=== PATIENT | female | born 1975 | race Native Hawaiian/Other Pacific Islander ===

== ENCOUNTER 2020-11-17 03:29 | Emergency (ER) | payer SELFPAY ==
[~2020-11-17] VITALS: Ht 152.4 cm; Wt 86.2 kg
[2020-11-17] MEDS ORDERED: METF-440 PO (03:47)
[2020-11-17] MEDS ORDERED: FURO-151 PO (03:47)
[2020-11-17] MEDS ORDERED: CARV12.5 PO (03:47)
[2020-11-17] MEDS ORDERED: SPIR25TA PO (03:47)
[2020-11-17] MEDS ORDERED: ASPI81TA31 PO (03:47)
[2020-11-17] MEDS ORDERED: SULFAMETH/TRIMETH 800/160 MG TABLET PO ONE (04:00)
[2020-11-17] MEDS ORDERED: CLONIDINE HCL 0.2 MG TABLET PO ONE (04:00)
--- NOTE | 2020-11-17 04:00 | NUR ---
Dr. Lacey at bedside for MSE
[2020-11-17] MEDS ORDERED: SULFAMETH/TRIMETH 800/160 MG TABLET ONE (04:07)
[2020-11-17] MEDS ORDERED: CLONIDINE HCL 0.2 MG TABLET ONE (04:07)
--- NOTE | 2020-11-17 04:20 | NUR ---
Patient discharged to home in stable condition. Written and verbal after care instructions given. Patient verbalizes understanding of instructions. Stressed follow up or return to ER for worsening s/s. Patient ambulated with steady gait. denies any N / V or dizziness. NAD noted
[2020-11-17 04:45] VITALS: BP 157/105
== END 2020-11-17 04:20 | disposition home or self-care (01) ==
LOC: ER 03:29
DX: L08.9 Local infection of the skin and subcutaneous tissue, unspecified (principal); E11.9 Type 2 diabetes mellitus without complications; Z79.84 Long term (current) use of oral hypoglycemic drugs; Z79.899 Other long term (current) drug therapy; I50.9 Heart failure, unspecified
CPT/HCPCS: A4663

== ENCOUNTER 2020-11-20 00:52 | Inpatient (IN) | payer SELFPAY ==
[~2020-11-20] VITALS: Ht 152.4 cm; Wt 83.9 kg
[~2020-11-20 00:52] MED LIST: ASPI81TA31 PO; CARV12.5 PO; FURO-151 PO; METF-440 PO; SPIR25TA PO
--- NOTE | 2020-11-20 01:00 | NUR ---
Patient walked into ER c/o bilateral hand pain and swelling for about a week. Patient was seen here 3 days ago for same complaint. Came back for worsening pain and swelling.
[2020-11-20] MEDS ORDERED: [UNRECOGNIZED DRUG - REMARK] (01:05)
[2020-11-20] MEDS ORDERED: VANCOMYCIN IV 1,000 MG in IV DEXTROSE 5% 250 ML IV ONE (01:30)
[2020-11-20] MEDS ORDERED: VANCOMYCIN IV 200 ML ONE (01:41)
[2020-11-20 01:52] LABS: BASOPHILS # (AUTO) 0.1 K/uL (0.0-8.0); EOSINOPHILS # (AUTO) 0.1 K/uL (0.0-0.7); EOSINOPHILS % (AUTO) 1.4 % (0.0-7.0); HEMATOCRIT 36.6 % (31.2-41.9); HEMOGLOBIN 12.6 g/dL (10.9-14.3); LYMPHOCYTES # (AUTO) 1.7 K/uL (20.0-40.0); LYMPHOCYTES % (AUTO) 17.6 % (20.5-51.5); MEAN CORPUSCULAR HEMOGLOBIN 31.2 uug (24.7-32.8); MEAN CORPUSCULAR HGB CONC 35 g/dL (32.3-35.6); MEAN CORPUSCULAR VOLUME 90.3 fL (75.5-95.3); MONOCYTES # (AUTO) 0.6 K/uL (2.0-10.0); MONOCYTES % (AUTO) 5.9 % (0.0-11.0); NEUTROPHILS # (AUTO) 6.9 K/uL (1.8-8.9); NEUTROPHILS % (AUTO) 74.1 % (38.5-71.5); PLATELET COUNT (AUTO) 356 K/uL (179-408); RED BLOOD CELL COUNT(AUTO) 4.06 MIL/uL (3.63-4.92); WHITE BLOOD COUNT (AUTO) 9.4 K/uL (3.8-11.8)
[2020-11-20 01:53] LABS: CREATININE 1.3 mg/dL (0.6-1.3); POTASSIUM 4.2 mmol/L (3.5-5.1)
[2020-11-20 02:05] LABS: BILIRUBIN,DIRECT 0.1 mg/dL (0.0-0.2); BILIRUBIN,TOTAL 0.2 mg/dL (0.2-1.0); TOTAL PROTEIN, SERUM 7.7 g/dL (6.4-8.2)
--- NOTE | 2020-11-20 02:24 | NUR ---
US tech into do exam
[2020-11-20 02:25] LABS: *BILIRUBIN,URIN NEGATIVE (NEGATIVE); *BLOOD, URINE NEGATIVE (NEGATIVE); *CLARITY,URINE CLEAR (CLEAR); *COLOR,URINE YELLOW (YELLOW); *KETONES,URINE NEGATIVE (NEGATIVE); *UROBILINOGEN,URINE 0.2 E.U./dl (NORMAL); LEUKOCYTE ESTERASE ,URINE NEGATIVE (NEGATIVE); NITRITE, URINE NEGATIVE (NEGATIVE); PH,URINE 7.5 (5.0-8.0)
[2020-11-20 02:37] LABS: UGLUCOSE 2+ (NEGATIVE)
[2020-11-20 02:39] LABS: *URINE HCG, QUAL NEGATIVE (NEGATIVE)
[2020-11-20 02:41] LABS: BACTERIA,URINE NONE SEEN /HPF (NONE SEEN); RBC,URINE 0-3 /HPF (0-3); SQUAMOUS EPITHELIAL CELL,UR MODERATE /HPF (NONE SEEN); WBC,URINE 0-3 /HPF (0-3)
[2020-11-20 02:48] LABS: *RHEUMATOID FACTOR SCREEN NEGATIVE (NEGATIVE)
[2020-11-20] MEDS ORDERED: MAGNESIUM HYDROXIDE 30 ML LIQUID UDC PO PRN (03:45)
[2020-11-20] MEDS ORDERED: ONDANSETRON 4 MG/2 ML VIAL IV PRN (03:45)
[2020-11-20] MEDS ORDERED: DEXTROSE 50% 50 ML DISP.SYRIN IV PRN (03:45)
[2020-11-20] MEDS ORDERED: ACETAMINOPHEN 325 MG TABLET PO PRN (03:45)
[2020-11-20] MEDS: MORPHINE SULFATE 2 MG/1 ML DISP.SYRIN IV PRN ×2 (04:06→18:05)
--- NOTE | 2020-11-20 04:30 | NUR ---
RECEIVED PATIENT VIA GURNEY FROM ER. A/O X4. C/O PAIN IN BILATERAL HANDS. GIVEN MORPHINE 1MG IVP PER RN. BP ELEVATED. PATIENT DENIES ANY CHEST PAIN OR DISCOMFORT. NO RESP. DISTRESS NOTED. WILL CONTINUE TO MONITOR AND ASSESS. CALL LIGHT IN REACH.
[2020-11-20] MEDS ORDERED: CLONIDINE HCL 0.1 MG TABLET PO STA (05:14)
[2020-11-20] MEDS ORDERED: CLONIDINE HCL 0.1 MG TABLET PO PRN (05:15)
--- NOTE | 2020-11-20 05:15 | NUR ---
PATIENT RESTING IN BED. BP 195/111. ALL OTHER VSS. PATIENT IS ASYMPTOMATIC. CALLED OUT TO AUGUSTIN DEBURR TECHNICIAN FOR FURTHER ORDERS.
[2020-11-20 05:31] VITALS: BP 195/111
[2020-11-20] MEDS: BLOOD SUGAR DIAGNOSTIC 1 EACH STRIP VI SCH ×4 (06:13→21:37)
[2020-11-20 07:10] VITALS: BP 197/120
--- NOTE | 2020-11-20 07:30 | NUR ---
Received patient in bed A/O x 4 no s/s of distress or SOB. Pt on room air sating well, IV on L AC flushes well. Pt voices concerns. Will continue to monitor and assess. safety measures in place
[2020-11-20] MEDS: ASPIRIN 81 MG TAB.CHEW PO SCH (08:26)
[2020-11-20] MEDS: SPIRONOLACTONE 25 MG TABLET PO SCH (08:26)
[2020-11-20] MEDS: METFORMIN HCL 500 MG TABLET PO SCH ×2 (08:26→17:35)
[2020-11-20] MEDS: FUROSEMIDE 40 MG TABLET PO SCH (08:28)
[2020-11-20] MEDS: ENOXAPARIN SODIUM 40 MG/0.4 ML DISP.SYRIN SQ SCH (08:35)
[2020-11-20] MEDS ORDERED: CARVEDILOL 12.5 MG TABLET PO SCH (09:00)
[2020-11-20] MEDS ORDERED: VALSARTAN 80 MG TABLET PO SCH (09:30)
[2020-11-20] MEDS ORDERED: CARVEDILOL 12.5 MG TABLET PO ONE (09:45)
[2020-11-20] MEDS: PIPERACILLIN SODIUM/TAZOBACTAM 3.375 G in IV DEXTROSE 5% 50 ML IV SCH ×2 (10:14→17:35)
[2020-11-20 11:33] VITALS: BP 116/62
--- NOTE | 2020-11-20 12:30 | NUR ---
WOUND CARE CONSULT: PT PRESENTS WITH EDEMA TO HANDS AND SOME OPEN AREAS AT BASE OF FINGERS. PT REPORTS FINGERS ARE PAINFUL. NO DRAINAGE NOTED. RECOMMEND SURGICAL CONSULT. DR VARGAS NOTIFIED OF CONSULT REQUEST. WILL SEE PRN. RUIZ IN AGREEMENT WITH PLAN OF CARE.
[2020-11-20] MEDS: INSULIN REGULAR, HUMAN 300 UNIT/3 ML VIAL SQ PRN ×2 (12:45→17:41)
[2020-11-20] MEDS ORDERED: LISI-603 PO (14:10)
[2020-11-20 16:00] VITALS: BP 120/71
--- NOTE | 2020-11-20 18:10 | NUR ---
Pt expressed throbbing pain on both hands, Pain Medication given as ordered
--- NOTE | 2020-11-20 19:21 | NUR ---
Pt is resting in bed. Pt is on room air satting well. IV is Intact and flushing well. Pt AOx4, complains of acute pain on hands gave Pain medications as ordered . Pt needs were met, PT is safe and comfortable.
[2020-11-20 20:23] VITALS: BP 141/79
[2020-11-20] MEDS: CARVEDILOL 25 MG TABLET PO SCH (21:36)
[2020-11-20] MEDS: HYDROCODONE/APAP 5-325MG TABLET PO PRN (21:40)
[2020-11-20] MEDS: VANCOMYCIN IV 1,250 MG in IV DEXTROSE 5% 250 ML IV SCH (23:15)
[2020-11-21] MEDS: PIPERACILLIN SODIUM/TAZOBACTAM 3.375 G in IV DEXTROSE 5% 50 ML IV SCH ×3 (01:26→17:09)
[2020-11-21 04:41] VITALS: BP 124/74
[2020-11-21] MEDS: BLOOD SUGAR DIAGNOSTIC 1 EACH STRIP VI SCH ×4 (06:34→20:42)
[2020-11-21 06:44] LABS: BASOPHILS # (AUTO) 0.1 K/uL (0.0-8.0); BASOPHILS % (AUTO) 0.9 % (0.0-2.0); EOSINOPHILS # (AUTO) 0.2 K/uL (0.0-0.7); EOSINOPHILS % (AUTO) 3.1 % (0.0-7.0); HEMATOCRIT 34.6 % (31.2-41.9); HEMOGLOBIN 11.7 g/dL (10.9-14.3); LYMPHOCYTES # (AUTO) 1.9 K/uL (20.0-40.0); LYMPHOCYTES % (AUTO) 28.4 % (20.5-51.5); MEAN CORPUSCULAR HEMOGLOBIN 30.7 uug (24.7-32.8); MEAN CORPUSCULAR HGB CONC 34 g/dL (32.3-35.6); MEAN CORPUSCULAR VOLUME 90.9 fL (75.5-95.3); MONOCYTES # (AUTO) 0.5 K/uL (2.0-10.0); MONOCYTES % (AUTO) 7.9 % (0.0-11.0); NEUTROPHILS % (AUTO) 59.7 % (38.5-71.5); PLATELET COUNT (AUTO) 332 K/uL (179-408); WHITE BLOOD COUNT (AUTO) 6.7 K/uL (3.8-11.8)
[2020-11-21 06:59] LABS: CREATININE 1.4 mg/dL (0.6-1.3); MAGNESIUM 1.8 mg/dL (1.8-2.4); PHOSPHOROUS 2.9 mg/dL (2.5-4.9); POTASSIUM 4.2 mmol/L (3.5-5.1)
[2020-11-21 07:59] LABS: THYROID STIMULATING HORMONE 1.864 mIU/mL (0.358-3.740)
[2020-11-21] MEDS: ASPIRIN 81 MG TAB.CHEW PO SCH (08:07)
[2020-11-21] MEDS: CARVEDILOL 25 MG TABLET PO SCH ×2 (08:07→20:36)
[2020-11-21] MEDS: METFORMIN HCL 500 MG TABLET PO SCH ×2 (08:07→17:06)
[2020-11-21] MEDS: SPIRONOLACTONE 25 MG TABLET PO SCH (08:07)
[2020-11-21] MEDS: FUROSEMIDE 40 MG TABLET PO SCH (08:07)
[2020-11-21] MEDS: ENOXAPARIN SODIUM 40 MG/0.4 ML DISP.SYRIN SQ SCH (08:08)
[2020-11-21] MEDS: INSULIN REGULAR, HUMAN 300 UNIT/3 ML VIAL SQ PRN ×3 (08:57→20:50)
[2020-11-21] MEDS: HYDROCODONE/APAP 5-325MG TABLET PO PRN ×2 (09:26→20:36)
[2020-11-21 11:29] VITALS: BP 105/49
[2020-11-21 16:45] VITALS: BP 138/87
[2020-11-21 20:08] VITALS: BP 156/83
[2020-11-21] MEDS ORDERED: ATORVASTATIN 10 MG TABLET PO SCH (21:00)
[2020-11-21] MEDS: VANCOMYCIN IV 1,250 MG in IV DEXTROSE 5% 250 ML IV SCH (23:06)
--- NOTE | 2020-11-21 23:48 | NUR ---
Pt is resting in bed. Pt is on room air, no SOB noted. No acute distress . C/O bilateral hand pain, administered [place], per pt request. All due medications administered as ordered. BS 131, covered per sliding scale, 2units. Bilateral Hands swollen and pink, administered Vanco, no adverse reaction, tolerating well. IV LAC is Intact and flushing well. All needs attended. Snack provided. Will continue to monitor.
[2020-11-22] MEDS: PIPERACILLIN SODIUM/TAZOBACTAM 3.375 G in IV DEXTROSE 5% 50 ML IV SCH (02:01)
[2020-11-22] MEDS: HYDROCODONE/APAP 5-325MG TABLET PO PRN (03:00)
--- NOTE | 2020-11-22 03:00 | NUR ---
c/o of 7/10 pain in left hand, administered [place] per request will monitor effectiveness.
[2020-11-22 04:51] VITALS: BP 150/70
[2020-11-22] MEDS: BLOOD SUGAR DIAGNOSTIC 1 EACH STRIP VI SCH ×2 (06:57→10:38)
[2020-11-22 07:13] LABS: CREATININE 1.5 mg/dL (0.6-1.3); POTASSIUM 4.2 mmol/L (3.5-5.1)
[2020-11-22] MEDS: INSULIN REGULAR, HUMAN 300 UNIT/3 ML VIAL SQ PRN ×2 (07:55→10:58)
[2020-11-22] MEDS: ASPIRIN 81 MG TAB.CHEW PO SCH (07:55)
[2020-11-22] MEDS: ENOXAPARIN SODIUM 40 MG/0.4 ML DISP.SYRIN SQ SCH (07:56)
[2020-11-22] MEDS: FUROSEMIDE 40 MG TABLET PO SCH (07:56)
[2020-11-22] MEDS: CARVEDILOL 25 MG TABLET PO SCH (07:56)
[2020-11-22] MEDS: METFORMIN HCL 500 MG TABLET PO SCH (07:56)
[2020-11-22] MEDS: SPIRONOLACTONE 25 MG TABLET PO SCH (07:56)
[2020-11-22] MEDS ORDERED: PIPERACILLIN/TAZO 2.25 G in IV DEXTROSE 5% 50 ML IV SCH (09:00)
[2020-11-22] MEDS ORDERED: ACIDOPHILUS/BULGARICUS CHEW TAB PO SCH (10:45)
[2020-11-22 11:35] VITALS: BP 158/83
[2020-11-22] MEDS ORDERED: DOXY-226 PO (15:44)
[2020-11-22] MEDS ORDERED: GLIP5TAB13 PO (15:44)
[2020-11-22] MEDS ORDERED: FURO-152 PO (15:44)
[2020-11-22] MEDS ORDERED: CARV25TA2 PO (15:44)
[2020-11-22] MEDS ORDERED: ATOR10TA PO (15:44)
[2020-11-22] MEDS ORDERED: HYDR-3974 PO (16:01)
--- NOTE | 2020-11-22 16:18 | NUR ---
dc orders received noted and carried out dc heplock per md orders,dc instruction and education given to the pt ,pt said she will follow up with her pcp in one week.pt left the facilty via private car in stable condition
== END 2020-11-22 16:36 | disposition home or self-care (01) | DRG 602 ==
LOC: ER 01:02 → MED 03:32 → MEDSURG3 06:31
PROVIDERS: ADMIT Internal Medicine; ATTEND Internal Medicine
DX: L03.114 Cellulitis of left upper limb (principal); N17.0 Acute kidney failure with tubular necrosis; L03.113 Cellulitis of right upper limb; L03.012 Cellulitis of left finger; R60.0 Localized edema; E11.65 Type 2 diabetes mellitus with hyperglycemia; Z79.84 Long term (current) use of oral hypoglycemic drugs; Z79.82 Long term (current) use of aspirin; Z20.822 Contact with and (suspected) exposure to COVID-19; E66.9 Obesity, unspecified; Z68.36 Body mass index [BMI] 36.0-36.9, adult; E78.5 Hyperlipidemia, unspecified; F17.210 Nicotine dependence, cigarettes, uncomplicated; Z79.899 Other long term (current) drug therapy; I11.0 Hypertensive heart disease with heart failure; I50.9 Heart failure, unspecified; F15.11 Other stimulant abuse, in remission; Z83.3 Family history of diabetes mellitus; L03.011 Cellulitis of right finger
CPT/HCPCS: 36415; 71045; 83735; 84100; 84443; 84703; 85025; 86430; 87040; 93005; A4663; G0378; J1650; J1815; J2270; J2543; J3370; J7050; J7060

== ENCOUNTER 2025-10-11 22:33 | Inpatient (IN) | payer OTHER ==
[~2025-10-11] VITALS: Ht 154.9 cm; Wt 75.9 kg
[~2025-10-11 22:33] MED LIST changes: +ATOR10TA PO; -CARV12.5 PO; +CARV25TA2 PO; +DOXY-226 PO; -FURO-151 PO; +FURO-152 PO; +GLIP5TAB23 PO; +HYDR-3974 PO; -METF-440 PO; -SPIR25TA PO
[2025-10-11] MEDS ORDERED: METF-440 PO (22:47)
[2025-10-11] MEDS ORDERED: SPIR25TA6 PO (22:47)
[2025-10-11 23:23] LABS: PLATELET COUNT (AUTO) 338 K/uL (179-408); RED BLOOD CELL COUNT(AUTO) 4.84 MIL/uL (3.63-4.92); RED CELL DISTRIBUTION WIDTH 15.5 % (12.3-17.7); WHITE BLOOD COUNT (AUTO) 11.4 K/uL (3.8-11.8)
[2025-10-11 23:29] LABS: CREATININE 2.0 mg/dL (0.6-1.3); SODIUM SERUM 141 mmol/L (136-145); UREA NITROGEN, BLOOD 41 mg/dL (7-18)
[2025-10-11 23:35] LABS: ASPARTATE AMINOTRANSFERASE 22 U/L (15-37); ETHANOL < 3 MG/DL (0-10); TOTAL PROTEIN, SERUM 8.0 g/dL (6.4-8.2)
[2025-10-12] MEDS ORDERED: LORAZEPAM 2 MG/1 ML VIAL IV ONE (00:30)
[2025-10-12] MEDS ORDERED: LORAZEPAM 2 MG/1 ML VIAL ONE (00:48)
[2025-10-12] MEDS: LORAZEPAM 2 MG/1 ML VIAL IV ONE (01:04)
[2025-10-12 01:45] VITALS: BP 157/106
[2025-10-12] MEDS ORDERED: MAGNESIUM HYDROXIDE 30 ML LIQUID UDC PO PRN (02:00)
[2025-10-12] MEDS: ASPIRIN 81 MG TAB.CHEW PO ONE ×2 (02:00→03:41)
[2025-10-12] MEDS ORDERED: NITROGLYCERIN 0.4 MG/TAB BOTTLE SL PRN (02:00)
[2025-10-12] MEDS ORDERED: ACETAMINOPHEN 325 MG TABLET PO PRN (02:00)
[2025-10-12] MEDS ORDERED: HYDROCODONE/APAP 5-325MG TABLET PO PRN (02:00)
[2025-10-12] MEDS ORDERED: REMEDY ESSENTIAL ZINC PASTE 113 GM TP PRN (02:00)
[2025-10-12] MEDS ORDERED: ONDANSETRON 4 MG/2 ML VIAL IV PRN (02:00)
[2025-10-12] MEDS ORDERED: DEXTROSE 50% 50 ML DISP.SYRIN IV PRN (02:15)
[2025-10-12] MEDS ORDERED: LORAZEPAM 0.5 MG TABLET PO PRN (02:15)
[2025-10-12] MEDS ORDERED: MORPHINE SULFATE 2 MG/1 ML DISP.SYRIN IV PRN (02:15)
[2025-10-12] MEDS: LORAZEPAM 1 MG TABLET PO PRN (04:56)
[2025-10-12] MEDS: PANTOPRAZOLE SODIUM 40 MG TABLET.DR PO SCH (06:19)
[2025-10-12] MEDS: BLOOD SUGAR DIAGNOSTIC 1 EACH STRIP VI SCH (06:19)
[2025-10-12 06:47] VITALS: BP 162/104; TEMP 98.7; O2SAT 94
[2025-10-12 07:35] VITALS: BP 158/89; TEMP 97.8; O2SAT 94
[2025-10-12] MEDS: FUROSEMIDE 40 MG/4 ML VIAL IV SCH (08:33)
[2025-10-12] MEDS: ASPIRIN 81 MG TAB.CHEW PO SCH (08:33)
[2025-10-12] MEDS: INSULIN REGULAR, HUMAN 1000 UNIT/10 ML VIAL SQ PRN (08:35)
[2025-10-12 11:57] VITALS: BP 157/88; TEMP 98.4; O2SAT 94
[2025-10-12 15:10] LABS: *BILIRUBIN,URIN NEGATIVE (NEGATIVE); *BLOOD, URINE NEGATIVE (NEGATIVE); *CLARITY,URINE CLEAR (CLEAR); *KETONES,URINE NEGATIVE (NEGATIVE); *PROTEIN,URINE 2+ (NEGATIVE); *UROBILINOGEN,URINE 0.2 E.U./dl (NORMAL); LEUKOCYTE ESTERASE ,URINE 1+ (NEGATIVE); NITRITE, URINE NEGATIVE (NEGATIVE); UGLUCOSE TRACE (NEGATIVE)
[2025-10-12 15:18] LABS: *CREATININE,URINE 20.0 mg/dL (30-125); *SODIUM RNDM,URINE 64.0 mmol/L (40-220); *URINE TOTAL PROTEIN RANDOM 79.6 mg/dL (<150/24HR)
[2025-10-12 15:22] LABS: *AMPHETAMINE, URINE POSITIVE (NEGATIVE); *BARBITURATE, URINE NEGATIVE (NEGATIVE); *BENZODIAZEPINE, URINE NEGATIVE (NEGATIVE); *CANNABINOID, URINE NEGATIVE (NEGATIVE); *COCCAINE, URINE NEGATIVE (NEGATIVE); *OPIATE, URINE NEGATIVE (NEGATIVE); *PHENCYCLIDINE SCREEN,URINE POSITIVE (NEGATIVE); FENTANYL, URINE NEGATIVE (NEGATIVE)
[2025-10-12 15:24] LABS: *COLOR,URINE LIGHT YELLOW (YELLOW)
[2025-10-12 15:42] LABS: SQUAMOUS EPITHELIAL CELL,UR MODERATE /HPF (NONE SEEN)
[2025-10-12 16:09] VITALS: BP 165/92; TEMP 97.8; O2SAT 94
[2025-10-12 19:00] VITALS: BP 158/92; TEMP 98.4
[2025-10-12] MEDS: CARVEDILOL 25 MG TABLET PO SCH (21:11)
[2025-10-12] MEDS: ATORVASTATIN 10 MG TABLET PO SCH (21:12)
[2025-10-13] VITALS: BP 134/83; TEMP 98.7
[2025-10-13 04:00] VITALS: BP 141/90; TEMP 98.6; O2SAT 95
[2025-10-13 07:11] LABS: PLATELET COUNT (AUTO) 301 K/uL (179-408); RED BLOOD CELL COUNT(AUTO) 4.35 MIL/uL (3.63-4.92); RED CELL DISTRIBUTION WIDTH 15.0 % (12.3-17.7); WHITE BLOOD COUNT (AUTO) 9.5 K/uL (3.8-11.8)
[2025-10-13 07:37] LABS: ASPARTATE AMINOTRANSFERASE 15.0 U/L (15-37); CREATININE 2.2 mg/dL (0.6-1.3); SODIUM SERUM 136.0 mmol/L (136-145); TOTAL PROTEIN, SERUM 6.5 g/dL (6.4-8.2); UREA NITROGEN, BLOOD 46.0 mg/dL (7-18)
[2025-10-13 07:52] LABS: CREATINE KINASE, TOTAL 103.0 U/L (26-192)
[2025-10-13 08:00] VITALS: BP 151/91; TEMP 98.5; O2SAT 98
[2025-10-13] MEDS: AMLODIPINE 5 MG TABLET PO SCH (08:15)
[2025-10-13 16:18] VITALS: BP 162/93; TEMP 97.8; O2SAT 96
[2025-10-13 19:25] VITALS: BP 173/87; TEMP 97.5; O2SAT 95
[2025-10-14] MEDS: TEMAZEPAM 15 MG CAPSULE PO PRN (02:42)
[2025-10-14 05:07] LABS: PTH, INTACT 52 pg/mL (15-65)
[2025-10-14 05:15] VITALS: BP 172/94; TEMP 97.4; O2SAT 95
[2025-10-14 07:12] LABS: CREATININE 1.7 mg/dL (0.6-1.3); SODIUM SERUM 138.0 mmol/L (136-145); UREA NITROGEN, BLOOD 39.0 mg/dL (7-18)
[2025-10-14] MEDS: AMLODIPINE 5 MG TABLET PO SCH (09:28)
[2025-10-14 12:30] VITALS: BP 173/94; TEMP 97.6; O2SAT 97
[2025-10-14 16:13] VITALS: BP 160/90; TEMP 98.3; O2SAT 98
[2025-10-14 20:56] VITALS: BP 159/87; TEMP 98.9; O2SAT 96
[2025-10-15] VITALS (8 sets, daily range): BP systolic 137–183; BP diastolic 74–113; TEMP 97.6–98.7; O2SAT 98–99
[2025-10-15 07:29] LABS: PLATELET COUNT (AUTO) 276 K/uL (179-408); RED BLOOD CELL COUNT(AUTO) 4.22 MIL/uL (3.63-4.92); RED CELL DISTRIBUTION WIDTH 14.9 % (12.3-17.7); WHITE BLOOD COUNT (AUTO) 8.1 K/uL (3.8-11.8)
[2025-10-15 07:46] LABS: CREATININE 1.5 mg/dL (0.6-1.3); SODIUM SERUM 139.0 mmol/L (136-145); UREA NITROGEN, BLOOD 33.0 mg/dL (7-18)
[2025-10-15] MEDS: AMLODIPINE 5 MG TABLET PO SCH (08:27)
[2025-10-15] MEDS: METOPROLOL TARTRATE 25 MG TABLET PO SCH (09:49)
[2025-10-16 05:16] VITALS: BP 161/106; TEMP 98.3; O2SAT 93
[2025-10-16] MEDS: LOSARTAN POTASSIUM 50 MG TABLET PO SCH (09:04)
[2025-10-16 11:35] VITALS: BP 161/82; TEMP 98.4; O2SAT 95
[2025-10-16 14:55] VITALS: BP 147/71; TEMP 98.4; O2SAT 95
[2025-10-16] MEDS ORDERED: LOSA50TA39 PO (15:31)
[2025-10-16] MEDS ORDERED: HYDR25TA86 PO (15:31)
[2025-10-16] MEDS ORDERED: AMLO-212 PO (15:31)
[2025-10-17 12:07] LABS: A/G RATIO 0.8 (0.7-1.7); BETA GLOBULIN 1.0 g/dL (0.7-1.3); GLOBULIN, TOTAL 3.2 g/dL (2.2-3.9); M-SPIKE Not Observed g/dL (Not Observed); PROTEIN, TOTAL 5.8 g/dL (6.0-8.5)
== END 2025-10-16 16:00 | disposition home or self-care (01) | DRG 812 ==
LOC: ER 22:46 → TELE3 10-12 02:00 → MEDSURG3 10-13 10:25
PROVIDERS: ADMIT Nurse Practitioner Acute Care; ATTEND Student in an Organized Health Care Education/Training Program
DX: T43.621A Poisoning by amphetamines, accidental (unintentional), initial encounter (principal); N17.0 Acute kidney failure with tubular necrosis; E44.1 Mild protein-calorie malnutrition; I21.A1 Myocardial infarction type 2; I13.0 Hypertensive heart and chronic kidney disease with heart failure and stage 1 through stage 4 chronic kidney disease, or unspecified chronic kidney disease; E11.22 Type 2 diabetes mellitus with diabetic chronic kidney disease; N18.9 Chronic kidney disease, unspecified; E66.9 Obesity, unspecified; F15.10 Other stimulant abuse, uncomplicated; I16.0 Hypertensive urgency; R45.851 Suicidal ideations; Y92.89 Other specified places as the place of occurrence of the external cause; I50.32 Chronic diastolic (congestive) heart failure; E78.5 Hyperlipidemia, unspecified; Z68.31 Body mass index [BMI] 31.0-31.9, adult; Z87.891 Personal history of nicotine dependence; Z91.148 Patient's other noncompliance with medication regimen for other reason; Z79.84 Long term (current) use of oral hypoglycemic drugs; Z79.82 Long term (current) use of aspirin; Z59.02 Unsheltered homelessness
CPT/HCPCS: 36415; 71045; 82088; 83735; 83970; 84100; 84155; 84165; 84244; 84300; 84443; 84484; 85025; 85730; 87086; 93307; A4606; A4663; G0378; G0480; J0360; J1815; J1938; J2060